=== PATIENT | female | born 1960 | race Caucasian/White ===

== ENCOUNTER → 2016-06-24 | Outpatient (CLI) | payer MEDICARE ==
[~2016-06-24] MED LIST: ANORO ELLIPTA1 EACH INH; COMBIVENT RESPIM4 GM INH; DEPAKOTE PO; LEVAQUIN750 M1 PO; RISPERDAL3 MG PO; ROXICODONE5 MG PO; SIMVASTATIN20 MG PO
--- NOTE | ~2016-06-24 | CR63 ---
[facility] A Service of [facility] RADIOLOGY TEXT RESULTS PATIENT: CHELA BURLESON LOCATION: [facility] : 56 UNIT #: [id number] AGE: [address]: Edwardo Cisneros MD SEX: F ORDER DR: [id number] [facility] [address] [place], [place] [address] [id number] O MR#: [id number] Acc #: [id number] NAME: CHELA BURLESON : 1960 SEX: F STUDY DATE/TIME: 06/24/2016 13:53 UNIT: [facility] ROOM: STUDY DESCRIPTION: CR Chest 2 View Attending Physician: Edwardo Cisneros M.D. Ordering Physician: Edwardo Cisneros M.D. MEDICAL IMAGING REPORT This report is preliminary unless electronic signature is present EXAM PA and lateral chest radiograph 06/24/2016 COMPARISON Examination of 05/04/2016. HISTORY SUPPLIED Hilar mass, shortness of breath for 2-3 months. FINDINGS PA and lateral views of the chest are obtained and compared to the study of 05/04/2016. Patient's PET/CT from 05/28/2016 is also reviewed. Cardiac size in the patient is normal. Vascular pattern is normal. Fullness is again identified within the right hilum. This is present on the patient's last study and, in fact, appears a little less obvious than it did previously. CONCLUSION Right hilar fullness actually decreased from the last study. Dictated by... Juve Holland M.D. THIS IS AN ELECTRONICALLY VERIFIED REPORT Juve Holland M.D. at 06/28/2016 2:45 PM EDMUNDO/yary TD: 06/24/2016 15:28 JOB #: [id number] MEDICAL IMAGING REPORT [facility] A Service of [facility] RADIOLOGY TEXT RESULTS PATIENT: CHELA BURLESON LOCATION: [facility] : 56 UNIT #: [id number] AGE: [address]: Edwardo Cisneros MD SEX: F ORDER DR: Page 1 of 1 COPY
== END | disposition home or self-care (01) ==
LOC: CRAD 13:43
DX: R91.8 Other nonspecific abnormal finding of lung field (principal)
CPT/HCPCS: 71020

== ENCOUNTER → 2016-08-31 | Outpatient (CLI) | payer MEDICARE ==
--- NOTE | ~2016-08-31 | CT57 ---
[facility] A Service of [facility] RADIOLOGY TEXT RESULTS PATIENT: CHELA BURLESON LOCATION: [facility] : 56 UNIT #: [id number] AGE: [address]: Wali Jaffe MD SEX: F ORDER DR: [id number] [place], [place] [address] [id number] O MR#: [id number] Acc #: [id number] NAME: CHELA BURLESON : 1960 SEX: F STUDY DATE/TIME: 08/31/2016 10:57 UNIT: [facility] ROOM: STUDY DESCRIPTION: CT Chest Wo Cont Attending Physician: Shaquille Jaffe M.D. Referring Physician: Shaquille Jaffe M.D. Ordering Physician: Shaquille Jaffe M.D. Primary Care Physician: Gretchen Stanton M.D. MEDICAL IMAGING REPORT This report is preliminary unless electronic signature is present EXAM CT chest without contrast DATE 08/31/2016 HISTORY 55-year-old female for followup of right hilar mass. Patient denies current complaints. No documented history of malignancy. COMPARISON CT chest without contrast 02/12/2016. PET CT 05/28/2016. PROCEDURE 5 mm noncontrast axial images through the chest. Sagittal and coronal reformatted images were obtained. This CT exam was performed with one or more of the following radiation dose reduction techniques: Automatic exposure control, adjustment of mA and/or kV according to patient size, and iterative reconstruction. FINDINGS Limited evaluation of the right hilum without the benefit of IV contrast. No right hilar mass lesion is seen. The abnormal findings in the right hilum on 02/12/2016 appear resolved. No pathologic mediastinal, supraclavicular or axillary adenopathy is seen, either. There are no suspicious pulmonary nodules. Mild centrilobular and paraseptal emphysematous changes are present. Previously described airspace disease and nodular opacities in both lungs on the 02/12/2016 examination appear resolved. No pericardial effusion. No pleural effusion. Heart size within normal limits. [facility] A Service of [facility] RADIOLOGY TEXT RESULTS PATIENT: CHELA BURLESON LOCATION: [facility] : 56 UNIT #: [id number] AGE: [address]: Wali Jaffe MD SEX: F ORDER DR: Included portions of the upper abdominal organs have an unremarkable noncontrast appearance. No suspicious osteolytic or osteoblastic lesions are identified. IMPRESSION 1. No right hilar mass or adenopathy is seen on today's examination. The current study is limited due to lack of IV contrast. 2. No suspicious pulmonary nodules or acute airspace disease is seen. 3. Mild paraseptal and centrilobular emphysema. Dictated by... Marissa Gillette M.D. THIS IS AN ELECTRONICALLY VERIFIED REPORT Marissa Gillette M.D. at 09/01/2016 2:10 PM BELLE/neeru TD: 08/31/2016 20:56 JOB #: [id number] MEDICAL IMAGING REPORT Page 1 of 1 COPY
== END | disposition home or self-care (01) ==
LOC: CCAT 10:01
DX: R93.8 Abnormal findings on diagnostic imaging of other specified body structures (principal); R06.02 Shortness of breath; J43.2 Centrilobular emphysema
CPT/HCPCS: 71250